=== PATIENT | male | born 1975 | race Caucasian/White ===

== ENCOUNTER → 2021-08-04 | Outpatient (CLI) | payer BC ==
[~2021-08-04] MED LIST: ANTIHISTAMINE; CEPHALEXIN500 M1 PO; DYAZIDE 25 MG-31 CAP PO; HCTZ 25MG TAB25 MG PO; LORTAB 5/500 501 TAB PO; MECLIZINE HCL25 M1 PO; PERCOCET 325 MG1 TA2 PO; [UNRECOGNIZED DRUG - OTHER] PO
== END ==
LOC: COL.RAD 14:00
DX: J32.9 Chronic sinusitis, unspecified (principal)

== ENCOUNTER → 2021-11-22 | Outpatient (CLI) | payer OTHER | LOC: COL.RAD 10:39 | DX: J32.9 Chronic sinusitis, unspecified (principal) ==

== ENCOUNTER 2023-10-25 07:43 | Day surgery (SDC) | payer OTHER ==
[~2023-10-25] VITALS: Ht 180.3 cm; Wt 69.4 kg
[~2023-10-25 07:43] MED LIST changes: +LR 1,000 ML IV SCH; +Ondansetron 4 MG/2 ML VIAL IV PRN
[2023-10-25] MEDS ORDERED: Lidocaine PF 2% (20 MG/ML) 5 ML VIAL ONE (07:49)
[2023-10-25] MEDS ORDERED: fentaNYL 50 MCG/ML 2 ML VIAL ONE (07:50)
[2023-10-25 09:55] VITALS: BP 109/85; PULSE 80; TEMP 97.7
[2023-10-25 10:05] VITALS: BP 102/83; PULSE 80
[2023-10-25 10:20] VITALS: BP 113/79; PULSE 68
--- NOTE | 2023-10-25 10:30 | NUR ---
[address] 3 PER CART. AWAKE, ALERT. RESP UNLABORED. AMBUALTES TO RECLINER WITH STANDBY ASSIST. DENIES NAUSEA OR ABD PAIN. VITAL SIGNS OBTAINED. CALL LIGHT AT SIDE 1005 TOLERATES PO JUICE AND ICE CREAM WITHOUT NAUSEA. 1010 DISCHARGE INSTRUCTIONS REVIEWED. PATIENT VERBALIZES UNDERSTANDING. COPY PROVIDED IN DISCHARGE FOLDER [address] DR[address] UNDERWOOD HERE TO VISIT WITH PATIENT 1025 DRESSES SELF
[2023-10-25 11:28] VITALS: BP 130/91; PULSE 91; TEMP 97.7
== END 2023-10-25 10:33 | disposition home or self-care (01) ==
LOC: SDCO 07:43
DX: Z12.11 Encounter for screening for malignant neoplasm of colon (principal); K64.0 First degree hemorrhoids; E78.5 Hyperlipidemia, unspecified; H81.09 Meniere's disease, unspecified ear; F98.8 Other specified behavioral and emotional disorders with onset usually occurring in childhood and adolescence; Z23 Encounter for immunization
CPT/HCPCS: J2704; J3010; J7120